=== PATIENT | female | born 1935 | race Caucasian/White ===

== ENCOUNTER → 2017-06-02 | Outpatient (CLI) | payer MEDICARE, BC ==
[~2017-06-02] MED LIST: ACETAMINOPHEN500 M4 PO; ALBUTEROL17 G1 IH; AMOXICILLIN PO; AMOXICILLIN500 M1 PO; BACTRIM DS TABL1 TA1; BACTRIM DS TABL1 TA1 PO; BACTRIM DS TABL1 TAB PO; BENAZEPRIL HCL10 MG PO; COMBIVENT U/D3 ML INH; COREG3.125 MG PO; DARVOCET-N 1001 TA1 PO; HYDROCODON-ACE1 EAC7 PO; KRISTALOSE20 G/PK1 PO; LEVAQUIN PO; LISINOPRIL10 MG PO; PREDNISONE PO; XANAX0.5 MG PO
--- NOTE | ~2017-06-02 | CR97 ---
[facility] A Service of [facility] & [facility] RADIOLOGY TEXT RESULTS PATIENT: LIZZ HANEY LOCATION: [facility] : 33 UNIT #: [id number] AGE: [address]: Les Alvarez MD SEX: F ORDER DR: [id number] [facility] [address] [place], [place] [address] [id number] O MR#: [id number] Acc #: [id number] NAME: LIZZ HANEY : 1935 SEX: F STUDY DATE/TIME: 06/02/2017 10:11 UNIT: [facility] ROOM: STUDY DESCRIPTION: CR Esophagram Attending Physician: Les Alvarez M.D. Referring Physician: Les Alvarez M.D. Ordering Physician: Les Alvarez M.D. Primary Care Physician: Víctor Newell M.D. MEDICAL IMAGING REPORT This report is preliminary unless electronic signature is present EXAM Fluoroscopic esophagram COMPARISON Upper GI and small bowel series dated September 08, 2005 INDICATIONS 80-year-old female with 2 week history of abdominal bloating and inability to eat. Recent weight loss. FINDINGS Total 11 images were obtained. Total fluoro time was 1.5 minutes. Gas - producing crystals were administered by mouth. Next thick barium was administered by mouth with imaging of the esophagus, then performed at 2 frames per second. Early on during barium administration, there was an episode of silent aspiration. Given this aspiration the exam was discontinued and therefore a complete evaluation of the esophagus was not performed. Limited images of the esophagus with double contrast demonstrate a diffusely patulous esophagus with very little peristaltic stripping. There is smooth tapering at the distal esophagus. There is no evidence of hiatal hernia. There is questionable mucosal irregularity of the posterior upper thoracic esophagus but this does not persist and is favored to be artifact due to air bubbles. Again a complete double contrast evaluation could not be performed. Findings do not appear to persist on all images suggesting in fact this is an artifact due to air bubbles. No gastroesophageal reflux could be produced with Valsalva. There is subjectively normal gastric emptying post barium administration. AP view of the chest demonstrates barium within the left mainstem bronchus. There is no barium seen more peripherally in the lungs. There is pooling of barium within the vallecula and piriform sinuses. There are also some tertiary contractions seen in the superior thoracic esophagus. No evidence of intrinsic or extrinsic mass involving the esophagus. [facility]. [facility] A Service of [facility] & [facility] RADIOLOGY TEXT RESULTS PATIENT: LIZZ HANEY [id number] UNIT #: [id number] AGE: [address]: Les Alvarez MD SEX: F ORDER DR: IMPRESSION 1. Limited double contrast evaluation of the esophagus as the exam had to be terminated early for aspiration. Aspiration was silent and noted to the level of the distal left mainstem bronchus. There is also pooling of barium noted in the vallecula and piriform sinuses. Speech pathology evaluation is recommended. Consider a modified barium swallow. 2. There appear to be tertiary contractions within the superior-most thoracic esophagus with relative hypomotility and patulous appearance seen throughout the remainder of the mid to distal esophagus. Please note the mucosa detail of the superior esophagus is not well evaluated as the exam again had to be terminated early. No definite mass lesion of the esophagus is seen. If persistent concern, consider direct visualization. 3. Subjectively normal gastric emptying. No evidence of hiatal hernia or gastroesophageal reflux despite Valsalva maneuvers. 4. Findings and recommendations were discussed with the patient and her daughter upon termination of the exam today. Dictated by... Johan Lemus M.D. THIS IS AN ELECTRONICALLY VERIFIED REPORT Johan Lemus M.D. at 06/08/2017 9:36 AM DANIELLE/toni TD: 06/03/2017 01:18 JOB #: [id number] MEDICAL IMAGING REPORT Page 1 of 1 COPY
== END | disposition home or self-care (01) ==
LOC: CRAD 09:07
DX: R63.4 Abnormal weight loss (principal); K22.8 Other specified diseases of esophagus
CPT/HCPCS: 74220

== ENCOUNTER → 2017-06-23 | Outpatient (CLI) | payer MEDICARE, BC | END | disposition home or self-care (01) | LOC: CRAD 09:35 | DX: R93.3 Abnormal findings on diagnostic imaging of other parts of digestive tract (principal); I07.1 Rheumatic tricuspid insufficiency | CPT/HCPCS: 74230; 92611; G8996-GN; G8997-GN; G8998-GN ==